=== PATIENT | female | born 1940 | race Caucasian/White ===

== ENCOUNTER 2016-09-28 11:21 | Emergency (ER) | payer OTHER ==
--- NOTE | 2016-09-28 11:31 | CPEKG ---
Heart Rate: 87 RR Interval: 690 P-R Interval: 141 QRSD Interval: 88 QT Interval: 384 QTC Interval: 462 P [place]: 71 QRS [place]: 6 T Wave [place]: 58 EKG Severity - ABNORMAL ECG - EKG Impression: SINUS RHYTHM EKG Impression: CONSIDER LEFT VENTRICULAR HYPERTROPHY EKG Impression: UNCHANGED IN COMPARISON TO PRIOR Electronically Signed By: Colby Montes 29-Sep-2016 15:24:40
[2016-09-28 11:35] VITALS: RESP 18; TEMP 98; O2SAT 97
[2016-09-28 11:59] LABS: % IMMATURE GRANULYOCYTES 0.2 % (0.0-1.1); ABSOLUTE IMMATURE GRANULOCYTES 0.02 10^3/uL (0.00-0.10); ADD DIFF? NO; ADD MORPH? NO; ADD SCAN? NO; ATYPICAL LYMPHOCYTE FLAG 0 (0-99); FRAGMENT RBC FLAG 0 (0-99); HEMATOCRIT 38.4 % (38.0-47.0); HEMOGLOBIN 13.3 g/dL (12.6-16.3); LEFT SHIFT FLG 0 (0-99); LIPEMIA HEMOLYSIS FLAG 90 (0-99); MEAN CELL HEMOGLOBIN 31.7 pg (27.9-34.1); MEAN CELL HEMOGLOBIN CONCENTR. 34.6 g/dL (32.4-36.7); MEAN CELL VOLUME 91.6 fL (81.5-99.8); MEAN PLATELET VOLUME 8.8 fL (8.7-11.7); PLATELET CLUMPS FLAG 10 (0-99); PLATELET COUNT 326 10^3/uL (150-400); RED BLOOD CELL COUNT 4.19 10^6/uL (4.18-5.33); RED CELL DISTRIBUTION WIDTH 12.9 % (11.5-15.2)
[2016-09-28 12:09] LABS: INR 0.94 (0.83-1.16); PROTIME(PATIENT) 12.3 SEC (12.0-15.0)
[2016-09-28 12:10] LABS: APTT 26.7 SEC (23.0-38.0)
[2016-09-28 12:12] LABS: ALANINE AMINOTRANSFERASE 37 IU/L (9-52); ALBUMIN 4.2 g/dL (3.5-5.0); ALKALINE PHOSPHATASE 64 IU/L (38-126); ANION GAP 12 mEq/L (8-16); ASPARTATE AMINOTRANSFERASE 25 IU/L (14-46); BILIRUBIN,TOTAL 0.5 mg/dL (0.1-1.4); CALCIUM 9.6 mg/dL (8.5-10.4); CARBON DIOXIDE 24 mEq/l (22-31); CHLORIDE 97 mEq/L (97-110); CREATININE 0.5 mg/dL (0.6-1.0); GLOMERULAR FILTRATION RATE > 60; GLUCOSE 110 mg/dL (70-100); SODIUM 133 mEq/L (134-144); TOTAL PROTEIN 7.3 g/dL (6.3-8.2)
[2016-09-28 12:22] LABS: TROPONIN I < 0.012 ng/mL (0-0.034)
--- NOTE | 2016-09-28 12:46 | EDPHY ---
H & P Stated Complaint: c/o CP last pm - nothing today Time Seen by Provider: 09/28/16 11:25 HPI/ROS: 76-year-old female with history of hypertension presents complaining of several twinges in her left chest lasting approximately 1 second. This happened multiple times approximately between 5 and 10 times last night. She had no nausea no vomiting no shortness of breath no unusual sweating. No history of diabetes, she is not a smoker. She is visiting for 4 weeks and has been here approximately 2 weeks at this point visiting from [place] taking care of her grandchildren. She denies leg pain or leg swelling Review of systems As per HPI General no fever no chills no weakness HEENT no eye pain no eye discharge. No eye redness, no sore throat Respiratory no cough, no shortness of breath Cardiac positive chest pain, no peripheral edema GI no abdominal pain, no diarrhea, no constipation, no nausea, no vomiting no flank pain, no hematuria, no dysuria Musculoskeletal no myalgias, no joint pain Heme no easy bruising, no easy bleeding Endo no polyuria, no polydipsia Skin no rashes, no pruritus Neuro no syncope, no dizziness, no headaches Psych is no suicidal ideation, no homicidal ideation Source: Patient Exam Limitations: No limitations - Personal History Current Tetanus Diphtheria and Acellular Pertussis (TDAP): Yes Tetanus Vaccine Date: 2010 - Medical/Surgical History Hx Asthma: No Hx Chronic Respiratory Disease: No Hx Diabetes: No Hx Cardiac Disease: No Hx Renal Disease: No Hx Cirrhosis: No Hx Alcoholism: No Hx HIV/AIDS: No Hx Splenectomy or Spleen Trauma: No Other PMH: HTN - Family History Significant Family History: No pertinent family hx - Social History Smoking Status: Never smoked Alcohol Use: Rarely Drug Use: None - Physical Exam Exam: 76-year-old female alert and oriented no acute distress nontoxic appearance afebrile, slightly anxious HEENT atraumatic normocephalic, extraocular muscles intact, anicteric Oropharynx negative for erythema negative exudate, tolerating her own secretions Neck supple no meningismus Lungs clear to auscultation bilaterally Heart regular rate and rhythm without murmur rub or gallop Abdomen nondistended normoactive bowel sounds soft nontender Back-positive kyphoscoliosis upper back no CVA tenderness, no step-offs, no spinal tenderness Extremities no cyanosis clubbing or edema Neuro alert and oriented, no focal deficits Constitutional: Initial Vital Signs Temperature (C) 36.6 C 09/28/16 11:33 Heart Rate 89 09/28/16 11:33 Respiratory Rate 18 09/28/16 11:33 Blood Pressure 190/100 H 09/28/16 11:33 O2 Sat (%) 97 09/28/16 11:33 O2 Delivery Mode Room Air Allergies/Adverse Reactions: No Known Allergies Allergy (Verified 08/31/14 11:36) Home Medications: Medication Instructions Recorded Losartan Potassium 04/28/13 Medical Decision Making - Diagnostics Imaging Results: Imaging Impressions Chest X-Ray 09/28/16 11:34 Impression: 1. No evidence of congestive heart failure or focal infiltrate. 2. 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 A DEXA scan may be of benefit in further evaluation. ED Course/Re-evaluation: Patient seen and evaluated for chest pain. Chest pain atypical in nature-lasting 1 second at a time left-sided feels like a "twinge" Differential diagnosis considered Bronchitis, pneumonia, pulmonary embolus, chest pain EKG-normal sinus rhythm no ischemic changes Chest x-ray normal Labs Troponin negative D-dimer negative CBC, CMP within normal limits Pt was observed in ER, she had already taken aspirin at home. Impression Atypical chest pain Plan Discharge Follow up with PCP upon return to [place] - Data Points Laboratory Results: Laboratory Results 09/28/16 11:55 09/28/16 11:55 09/28/16 09/28/16 09/28/16 11:55 11:55 11:55 WBC 8.64 10^3/uL 10^3/uL (3.80-9.50) RBC 4.19 10^6/uL 10^6/uL (4.18-5.33) Hgb 13.3 g/dL g/dL (12.6-16.3) Hct 38.4 % % (38.0-47.0) MCV 91.6 fL fL (81.5-99.8) MCH 31.7 pg pg (27.9-34.1) MCHC 34.6 g/dL g/dL (32.4-36.7) RDW 12.9 % % (11.5-15.2) Plt Count 326 10^3/uL 10^3/uL (150-400) MPV 8.8 fL fL (8.7-11.7) Neut % (Auto) 63.6 % % (39.3-74.2) Lymph % (Auto) 28.7 % % (15.0-45.0) [place] % (Auto) 6.7 % % (4.5-13.0) Eos % (Auto) 0.3 % L % (0.6-7.6) Baso % (Auto) 0.5 % % (0.3-1.7) Nucleat RBC Rel Count 0.0 % % (0.0-0.2) Absolute Neuts (auto) 5.49 10^3/uL 10^3/uL (1.70-6.50) Absolute Lymphs (auto) 2.48 10^3/uL 10^3/uL (1.00-3.00) Absolute Monos (auto) 0.58 10^3/uL 10^3/uL (0.30-0.80) Absolute Eos (auto) 0.03 10^3/uL 10^3/uL (0.03-0.40) Absolute Basos (auto) 0.04 10^3/uL 10^3/uL (0.02-0.10) Absolute Nucleated RBC 0.00 10^3/uL 10^3/uL (0-0.01) Immature Gran % 0.2 % % (0.0-1.1) Immature Gran # 0.02 10^3/uL 10^3/uL (0.00-0.10) PT 12.3 SEC SEC (12.0-15.0) INR 0.94 (0.83-1.16) APTT 26.7 SEC SEC (23.0-38.0) D-Dimer < 0.27 ug/mLFEU ug/mLFEU (0.00-0.50) Sodium 133 mEq/L L mEq/L (134-144) Potassium 4.0 mEq/L mEq/L (3.5-5.2) Chloride 97 mEq/L mEq/L (97-110) Carbon Dioxide 24 mEq/l mEq/l (22-31) Anion Gap 12 mEq/L mEq/L (8-16) BUN 12 mg/dL mg/dL (7-23) Creatinine 0.5 mg/dL L mg/dL (0.6-1.0) Estimated GFR > 60 Glucose 110 mg/dL H mg/dL (70-100) Calcium 9.6 mg/dL mg/dL (8.5-10.4) Total Bilirubin 0.5 mg/dL mg/dL (0.1-1.4) AST 25 IU/L IU/L (14-46) ALT 37 IU/L IU/L (9-52) Alkaline Phosphatase 64 IU/L IU/L (38-126) Troponin I < 0.012 ng/mL ng/mL (0-0.034) Total Protein 7.3 g/dL g/dL (6.3-8.2) Albumin 4.2 g/dL g/dL (3.5-5.0) Departure - Departure Disposition: Home, Routine, Self-Care Clinical Impression: Atypical chest pain Condition: Good Instructions: Noncardiac Chest Pain (ED) Referrals: JOHNATHAN MERIDA [Other] - As per Instructions
[2016-09-28 12:54] VITALS: BP 174/105; PULSE 87
== END 2016-09-28 12:53 | disposition home or self-care (01) ==
LOC: CED 11:21
DX: R07.89 Other chest pain (principal); I10 Essential (primary) hypertension
CPT/HCPCS: 71020-PO; 80053-PO; 84484-PO; 85025-PO; 85378-PO; 85610-PO; 85730-PO